=== PATIENT | female | born 1990 | race Caucasian/White ===

== ENCOUNTER 2016-10-04 22:22 | Emergency (ER) | payer OTHER ==
--- NOTE | ~2016-10-04 | CT2 ---
[facility] A Service of [facility] [place] [facility] RADIOLOGY TEXT RESULTS PATIENT: DAYNA NORRIS LOCATION: SED : [birth year] UNIT #: [id number] AGE: [address]: AGUSTIN DE LA CRUZ SEX: F ORDER DR: [id number] [address] [address] [id number] E MR#: [id number] Acc #: [id number] NAME: DAYNA NORRIS : 1990 SEX: F STUDY DATE/TIME: 10/04/2016 23:43 UNIT: SED ROOM: STUDY DESCRIPTION: CT Abd and Pelv W Cont Attending Physician: Agustin De La Cruz Ordering Physician: Staff Doctor Not On Primary Care Physician: No Primary Care Physician MEDICAL IMAGING REPORT This report is preliminary unless electronic signature is present. EXAM CT abdomen and pelvis with IV contrast COMPARISON 06/29/2007. INDICATION 18-year-old female with upper abdominal pain, nausea and emesis for 1 day. Microhematuria. FINDINGS Axial CT imaging of the abdomen and pelvis was performed after IV administration of 100 mL of Isovue-370. Coronal and sagittal reformats were constructed. This CT exam was performed with one or more of the following radiation dose reduction techniques: automatic exposure control, adjustment of mA and/or kV according to patient size, and iterative reconstruction. Tiny fat-containing umbilical hernia. No acute fractures or suspicious osseous lesions. Noncalcified 5-mm nodule in the lingula which appears slightly more dense since 2006 and possibly slightly increased in size. Its AP dimension, in particular, appears larger. No acute findings in imaged lower chest. Liver, gallbladder, pancreas, spleen, adrenal glands, and kidneys are within normal limits. There is a splenule. There is no hydronephrosis or hydroureter. No renal or ureteral calculus. Urinary bladder and uterus are unremarkable. There are bilateral tubal ligation clips. There is questionable hypoattenuating lesion in the left ovary measuring up to approximately 2.9 cm. This has a density suggesting internal proteinaceous fluid. No evidence of acute appendicitis. No free fluid or pneumoperitoneum. In the midline lower abdomen extending into the midline upper abdomen, there is fluid-distended small bowel loop which gradually tapers to a normal caliber distally. This is a nonspecific finding and may reflect an acute enteritis. Low-grade small bowel STS. [facility] A Service of [facility] [place] [facility] RADIOLOGY TEXT RESULTS PATIENT: DAYNA NORRIS LOCATION: [facility] [place] [birth year] UNIT #: [id number] AGE: [address]: AGUSTIN DE LA CRUZ SEX: F ORDER DR: obstruction due to adhesions is not entirely excluded. Rodriguez of this dilated bowel loop appear mildly hyperemic. Normal caliber of the abdominal aorta, patency of its main branches. No evidence of venous thrombosis. No adenopathy. IMPRESSION 1. There is nonspecific fluid distension of the mid small bowel loop seen in the midline abdomen extending from the pelvis to the mid aspect of the abdomen. This appears to taper gradually and measures up to approximately 2.6 cm in maximum caliber. The wall of the small bowel loop appears mildly hyperemic. This finding could reflect an acute enteritis. Low-grade bowel obstruction is not entirely excluded but is thought less likely. Clinical correlation recommended. 2. Not mentioned specifically in the body of the report, there is hepatomegaly with hepatic length of 23 cm. 3. There is a 6 mm nodule in the lingula which has increased minimally in size from 2006 when it measured up to 5 mm. This is most likely a benign, pulmonary granuloma. Depending on risk factor for pulmonary malignancy, imaging follow-up could be performed if clinically indicated. This could be considered in 1 year. In the absence of risk factors, however, this is most likely a benign granuloma and no imaging follow-up would be indicated. 4. 2.9 cm low density but indeterminate density lesion suspected in the left ovary, likely representing a proteinaceous cyst. Would consider followup with pelvic ultrasound in 6 weeks to document stability or resolution or to exclude a possible solid component. 5. Bilateral tubal ligation. Dictated by... Jun Solorzano M.D. THIS IS AN ELECTRONICALLY VERIFIED REPORT Jun Solorzano M.D. at 10/12/2016 10:07 AM MARIAELENA/jorge TD: 10/05/2016 09:42 JOB #: [id number] MEDICAL IMAGING REPORT
[~2016-10-04 22:22] MED LIST: NO MEDICATIONS; ZOFRAN ODT4 MG PO
[2016-10-04 23:07] LABS: URINE SOURCE CLEAN CATCH
[2016-10-04 23:09] LABS: URINE APPEARANCE CLEAR; URINE BILIRUBIN NEG (NEG); URINE BLOOD 1+ (NEG); URINE COLOR YELLOW; URINE GLUCOSE NEG (NORM); URINE KETONE NEG (NEG); URINE LEUKOCYTE ESTERASE NEG (NEG); URINE NITRATE NEG (NEG); URINE PH 5.5 (5-8); URINE PROTEIN NEG (NEG); URINE SPECIFIC GRAVITY 1.015 (1.003-1.035); URINE UROBILINOGEN 0.2 MG/DL (NORM)
[2016-10-04 23:10] LABS: MICRO INDICATED? YES
[2016-10-04 23:11] LABS: BASOPHIL% 0.5 % (0-2.5); DIFF IND NO; EOSINOPHIL# 0.2 X10e3 (0-0.7); EOSINOPHIL% 2.6 % (0.0-7.0); HEMOGLOBIN 14.5 gm/dL (12.0-16.0); LYMPHOCYTE# 2.3 X10e3 (1.0-3.5); LYMPHOCYTE% 27.3 % (17.0-45.0); MEAN CELL VOLUME 92.6 FL (83-96); MEAN CORPUSCULAR HEMOGLOBIN 31.8 PG (28-34); MEAN CORPUSCULAR HGB CONC 34.4 g/dL (30-36); MEAN PLATELET VOLUME 9.3 FL (6.5-11.5); MONOCYTE# 0.5 X10e3 (0-1.0); MONOCYTE% 5.3 % (3.0-12.0); NEUTROPHIL# 5.4 X10e3 (1.5-7.1); NEUTROPHIL% 64.3 % (40-75); PLATELET COUNT 215 X10e3 (140-420); RED BLOOD COUNT 4.54 X10e (3.90-5.30); RED CELL DISTRIBUTION WIDTH 13.1 % (11.0-15.5); WHITE BLOOD COUNT 8.5 X10e3 (4.0-10.5)
[2016-10-04 23:12] LABS: CULTURE INDICATED? NO; URINE BACTERIA NEG (NEG); URINE SQUAMOUS EPITHELIAL CELL OCCAS /[HPF]; URINE WBC 0-2 /[HPF] (0-5)
[2016-10-04 23:28] LABS: ALBUMIN SERUM 4.3 g/dL (3.5-5.0); ALKALINE PHOSPHATASE 51 U/L (32-92); ALT (SGPT) 17 U/L (10-40); AST (SGOT) 17 U/L (10-42); BILIRUBIN, DIRECT <0.1 mg/dL (0.0-0.2); BILIRUBIN,INDIRECT 0.1 mg/dL (0.0-0.9); BILIRUBIN,TOTAL 0.2 mg/dL (0.2-2.0); BLOOD UREA NITROGEN 18 mg/dL (9-23); BUN/CREATININE RATIO 25.71; CALCIUM SERUM 9.2 mg/dL (8.4-10.2); CARBON DIOXIDE 26 mmol/L (22-31); CHLORIDE 104 mmol/L (100-111); CREATININE SERUM 0.7 mg/dL (0.6-1.4); GLOM FILT RATE Estimated ABOVE60 mL/min (>60); GLUCOSE FASTING 103 mg/dL (70-110); LIPASE 33 U/L (22-51); POTASSIUM 3.9 mmol/L (3.5-5.1); PROTEIN TOTAL SERUM 7.2 g/dL (6.0-8.3); SODIUM 137 mmol/L (135-145)
== END 2016-10-05 01:28 | disposition home or self-care (01) ==
LOC: SED 22:22
PROVIDERS: Physician Assistant
DX: R10.11 Right upper quadrant pain (principal); R10.12 Left upper quadrant pain; R11.0 Nausea; K21.9 Gastro-esophageal reflux disease without esophagitis; R03.0 Elevated blood-pressure reading, without diagnosis of hypertension; F17.210 Nicotine dependence, cigarettes, uncomplicated; Z88.0 Allergy status to penicillin
CPT/HCPCS: 36415; 74177; 80048; 80076; 81003; 83690; 84703; 85025; 96361; 96374; 96375; 99284; C9113; J2405; Q9967

== ENCOUNTER 2017-01-03 20:20 | Emergency (ER) | payer OTHER ==
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
[2017-01-03] MEDS ORDERED: PRILOSEC (20:36)
[2017-01-03] MEDS ORDERED: BACITRACIN OP3.5 GM OD (22:01)
[2017-01-03] MEDS ORDERED: NAPROSYN-EC500 M1 DOB (22:01)
== END 2017-01-03 22:02 | disposition home or self-care (01) ==
LOC: SED 20:20
DX: S00.11XA Contusion of right eyelid and periocular area, initial encounter (principal); W22.8XXA Striking against or struck by other objects, initial encounter
CPT/HCPCS: 70486; 99284

== ENCOUNTER 2017-04-26 18:13 | Emergency (ER) | payer OTHER ==
[~2017-04-26] VITALS: Ht 167.6 cm; Wt 104.3 kg
[~2017-04-26 18:13] MED LIST changes: +BACITRACIN OP3.5 GM OD; +NAPROSYN-EC500 M1 DOB; +PRILOSEC
[2017-04-26] MEDS ORDERED: BENTYL20 MG (18:46)
== END 2017-04-26 20:27 | disposition home or self-care (01) ==
LOC: SED 18:13
DX: J20.9 Acute bronchitis, unspecified (principal); K21.9 Gastro-esophageal reflux disease without esophagitis; Z98.51 Tubal ligation status; Z88.0 Allergy status to penicillin
CPT/HCPCS: 87651; 94640; 99284